=== PATIENT | female | born 1950 | race Caucasian/White ===

== ENCOUNTER → 2023-12-31 14:59 | Outpatient (REF) | payer MEDICARE, OTHER, SELFPAY ==
[2024-01-01 08:14] LABS: % Basophils 0.9 % (0-2); % Eosinophils 3.8 % (0-6); % Immature Granulocytes 0.2 % (0-0.5); % Lymphocytes 35.2 % (20.5-51.1); % Monocytes 11.5 % (1.7-9.3); % Neutrophils 48.4 % (42.2-75.2); Absolute Eosinophils 0.2 10^3/uL (0-0.7); Absolute Lymphocytes 1.6 10^3/uL (1.2-3.4); Absolute Monocytes 0.5 10^3/uL (0.1-0.6); Absolute Neutrophils 2.1 10^3/uL (1.4-6.5); Hematocrit 41.8 % (37.0-47.0); Hemoglobin 14.6 g/dL (12.0-16.0); Mean Corp Hgb Conc. 34.9 g/dL (33.0-37.0); Mean Corpuscular Hgb 31.4 pg (27.0-31.0); Mean Corpuscular Volume 89.9 fL (81.0-99.0); Mean Platelet Volume 10.2 fL (7.4-10.4); Nucleated Red Blood Cells % 0 %; Platelet Count 294 10^3/uL (130-400); Red Blood Cell Count 4.65 10^6/uL (4.20-5.40); Red Cell Dist. Width 13.6 % (11.5-14.5); White Blood Cell Count 4.4 10^3/uL (4.8-10.8)
[2024-01-01 08:53] LABS: Glycohemoglobin (HgbA1c) 5.8 % (4.0-5.6)
[2024-01-01 08:57] LABS: Free T4 1.38 ng/dl (0.78-2.19)
[2024-01-01 09:03] LABS: ALT (SGPT) 22 U/L (0-35); AST (SGOT) 27 U/L (14-36); Albumin 4.6 g/dl (3.5-5.0); Alkaline Phosphatase 88 U/L (38-126); Blood Urea Nitrogen 15 mg/dl (7-17); Calcium 10.2 mg/dl (8.4-10.2); Carbon Dioxide 27 mmol/L (22-30); Chloride 105 mmol/L (98-107); Glucose 112 mg/dl (70-99); HDL Cholesterol 86 mg/dl; LDL Cholesterol, Calculated 113 mg/dl; Potassium 4.4 mmol/L (3.5-5.1); Sodium 138 mmol/L (135-145); Total Bilirubin 0.5 mg/dl (0.2-1.3); Total Cholesterol 221 mg/dl (50-199); Total Protein 7.4 g/dl (6.3-8.2); Triglyceride 112 mg/dl (10-149); Very Low Density Lipoprotein 22 mg/dl (0-30); eGFR > 60.00
[2024-01-01 09:11] LABS: TSH 0.48 uIU/ml (0.47-4.68)
== END ==
LOC: RAD 14:59
PROVIDERS: ATTENDING PHYSICIAN Otolaryngology; FAMILY PHYSICIAN Physician Assistant Medical
DX: E04.1 Nontoxic single thyroid nodule (principal); E07.9 Disorder of thyroid, unspecified; Z00.01 Encounter for general adult medical examination with abnormal findings; E78.5 Hyperlipidemia, unspecified; G47.09 Other insomnia; R73.01 Impaired fasting glucose; Z86.018 Personal history of other benign neoplasm
CPT/HCPCS: 36415; 76536; 80053; 80061; 83036; 84439; 84443; 84481; 85025

== ENCOUNTER → 2024-03-16 16:30 | Outpatient (REF) | payer MEDICARE, OTHER, SELFPAY | LOC: WDC 16:30 | PROVIDERS: ATTENDING PHYSICIAN Physician Assistant Medical | DX: Z12.31 Encounter for screening mammogram for malignant neoplasm of breast (principal) | CPT/HCPCS: 77063; 77067 ==

== ENCOUNTER → 2024-07-08 12:13 | Outpatient (REF) | payer MEDICARE, OTHER, SELFPAY ==
[2024-07-08 13:47] LABS: Free T3 4.29 pg/ml (2.77-5.27); Free T4 1.15 ng/dl (0.78-2.19)
[2024-07-08 14:01] LABS: TSH 0.02 uIU/ml (0.47-4.68)
== END ==
LOC: RAD 12:13
PROVIDERS: ATTENDING PHYSICIAN Otolaryngology; FAMILY PHYSICIAN Physician Assistant Medical
DX: E04.0 Nontoxic diffuse goiter (principal)
CPT/HCPCS: 76536; 84439; 84443; 84481

== ENCOUNTER → 2024-09-05 13:00 | Outpatient (REF) | payer MEDICARE, OTHER, SELFPAY ==
[2024-09-05 15:23] LABS: Free T3 3.78 pg/ml (2.77-5.27); Free T4 1.22 ng/dl (0.78-2.19)
[2024-09-05 15:37] LABS: TSH < 0.02 uIU/ml (0.47-4.68)
== END ==
LOC: REG 13:00
PROVIDERS: ATTENDING PHYSICIAN Nurse Practitioner Family
DX: E05.90 Thyrotoxicosis, unspecified without thyrotoxic crisis or storm (principal)
CPT/HCPCS: 36415; 84439; 84443; 84481

== ENCOUNTER → 2024-10-18 11:21 | Outpatient (REF) | payer MEDICARE, OTHER, SELFPAY ==
[2024-10-18 15:57] LABS: Free T3 4.75 pg/ml (2.77-5.27); Free T4 1.28 ng/dl (0.78-2.19)
[2024-10-18 16:10] LABS: TSH 0.04 uIU/ml (0.47-4.68)
== END ==
LOC: REG 11:21
PROVIDERS: ATTENDING PHYSICIAN Nurse Practitioner Family; FAMILY PHYSICIAN Physician Assistant Medical
DX: E05.90 Thyrotoxicosis, unspecified without thyrotoxic crisis or storm (principal)
CPT/HCPCS: 36415; 84439; 84443; 84481

== ENCOUNTER → 2024-12-23 06:53 | Outpatient (REF) | payer MEDICARE, OTHER, SELFPAY ==
[2024-12-23 08:59] LABS: Free T3 3.78 pg/ml (2.77-5.27); Free T4 1.16 ng/dl (0.78-2.19)
[2024-12-23 09:12] LABS: TSH 0.56 uIU/ml (0.47-4.68)
[2024-12-25 03:28] LABS: Thyroid Stim. Immunoglobulin <0.10 IU/L (<=0.54)
== END ==
LOC: REG 06:53
PROVIDERS: ATTENDING PHYSICIAN Internal Medicine Endocrinology, Diabetes & Metabolism; FAMILY PHYSICIAN Physician Assistant Medical
DX: R94.6 Abnormal results of thyroid function studies (principal)
CPT/HCPCS: 36415; 84439; 84443; 84445; 84481

== ENCOUNTER → 2025-03-17 12:50 | Outpatient (REF) | payer MEDICARE, OTHER, SELFPAY | LOC: WDC 12:50 | PROVIDERS: ATTENDING PHYSICIAN Physician Assistant Medical | DX: Z12.31 Encounter for screening mammogram for malignant neoplasm of breast (principal) | CPT/HCPCS: 77063; 77067 ==

== ENCOUNTER → 2025-06-08 08:43 | Outpatient (REF) | payer MEDICARE, OTHER, SELFPAY ==
[2025-06-08 10:02] LABS: Hematocrit 43.0 % (37.0-47.0); Hemoglobin 14.5 g/dL (12.0-16.0); Mean Corp Hgb Conc. 33.7 g/dL (33.0-37.0); Mean Corpuscular Volume 91.9 fL (81.0-99.0); Nucleated Red Blood Cells % 0 %; Platelet Count 294 10^3/uL (130-400); Red Cell Dist. Width 14.4 % (11.5-14.5)
[2025-06-08 11:01] LABS: Glycohemoglobin (HgbA1c) 5.6 % (4.0-5.6)
[2025-06-08 11:29] LABS: ALT (SGPT) 25 U/L (0-35); AST (SGOT) 27 U/L (14-36); Albumin 4.7 g/dl (3.5-5.0); Alkaline Phosphatase 91 U/L (38-126); Blood Urea Nitrogen 19 mg/dl (7-17); Calcium 10.2 mg/dl (8.4-10.2); Carbon Dioxide 25 mmol/L (22-30); Chloride 105 mmol/L (98-107); Glucose 99 mg/dl (70-99); HDL Cholesterol 83 mg/dl; LDL Cholesterol, Calculated 134 mg/dl; Potassium 5.4 mmol/L (3.5-5.1); Sodium 138 mmol/L (135-145); Total Protein 7.7 g/dl (6.3-8.2); Very Low Density Lipoprotein 28 mg/dl (0-30); eGFR > 60.00
[2025-06-08 11:39] LABS: TSH 0.55 uIU/ml (0.47-4.68)
== END ==
LOC: REG 08:43
PROVIDERS: ATTENDING PHYSICIAN Physician Assistant Medical
DX: Z00.01 Encounter for general adult medical examination with abnormal findings (principal); E78.5 Hyperlipidemia, unspecified; R73.01 Impaired fasting glucose; E05.90 Thyrotoxicosis, unspecified without thyrotoxic crisis or storm
CPT/HCPCS: 36415; 80053; 80061; 83036; 84439; 84443; 85025

== ENCOUNTER → 2025-07-12 09:39 | Outpatient (REF) | payer MEDICARE, OTHER, SELFPAY ==
[2025-07-12 16:19] LABS: Potassium 4.6 mmol/L (3.5-5.1)
== END ==
LOC: REG 09:39
PROVIDERS: ATTENDING PHYSICIAN Physician Assistant Medical
DX: E87.5 Hyperkalemia (principal)
CPT/HCPCS: 36415; 84132